=== PATIENT | female | born 1975 | race African-American/Black ===

== ENCOUNTER 2020-11-08 06:59 | Emergency (ER) | payer OTHER ==
[~2020-11-08] VITALS: Ht 177.8 cm; Wt 86.2 kg
[2020-11-08] MEDS ORDERED: SPIRONOLACTONE50 MG PO (07:39)
[2020-11-08] MEDS ORDERED: LASIX 40 MG TAB40 MG PO (07:39)
[2020-11-08] MEDS ORDERED: VITAMIN B-1100 M2 PO (07:40)
[2020-11-08] MEDS ORDERED: MAGOX 400400 MG PO (07:40)
[2020-11-08] MEDS ORDERED: FOLIC ACID1 MG PO (07:40)
[2020-11-08] MEDS ORDERED: ESSENTIAL DAIL1 EACH PO (07:41)
[2020-11-08 08:03] LABS: ABSOLUTE NEUTROPHILS 7.4 thou/uL (1.4-8.2); BASOPHILS 0.5 % (0.0-2.0); HEMOGLOBIN 10.7 gm/dL (12.0-15.0); MCH 32.6 pg (26.0-34.0); MCHC 33.4 g/dL (28.0-37.0); MCV 97.6 fL (80.0-100.0); MONOCYTES 5.8 % (1.0-8.0); PLATELET COUNT 119 thou/uL (150-400); POLYS 80.7 % (36.0-66.0); RBC 3.27 mil/uL (4.20-5.00); RDW 13.6 % (10.5-14.5); WBC 9.2 thou/uL (4.0-11.0)
[2020-11-08 08:12] LABS: ALBUMIN 2.5 g/dL (3.4-5.0); CREATININE 0.7 mg/dL (0.6-1.0); POTASSIUM 3.7 mmol/L (3.5-5.1); TOTAL PROTEIN 6.6 g/dL (6.4-8.2)
[2020-11-08 08:14] LABS: TOTAL BILIRUBIN 6.2 mg/dL (0.2-1.0)
[2020-11-08 08:19] LABS: CALCIUM 8.2 mg/dL (8.5-10.1)
[2020-11-08 09:16] LABS: URINE BILIRUBIN 1+ (Negative); URINE BLOOD 2+ (Negative); URINE CLARITY CLEAR; URINE COLOR YELLOW; URINE GLUCOSE-RANDOM* NEGATIVE (Negative); URINE KETONES NEGATIVE (Negative); URINE LEUKOCYTES-REFLEX NEGATIVE (Negative); URINE NITRITE-REFLEX NEGATIVE (Negative); URINE PROTEIN (DIPSTICK) NEGATIVE (Negative); URINE SPECIFIC GRAVITY <= 1.005 (1.005-1.035); URINE UROBILINOGEN 0.2 E.U./dl (0.2-1.0)
[2020-11-08 09:20] LABS: ICTOTEST (BILI CONFIRMATORY) Positive (Negative)
[2020-11-08 09:30] LABS: BACTERIA-REFLEX None Seen /HPF (None Seen); CASTS None Seen /LPF (None Seen); CRYSTALS None Seen /LPF (None Seen); SQUAMOUS 0-3 Few /LPF (0-3); URINE RBC 0-2 Rare /HPF (0-2); URINE WBC-REFLEX 0-5 Rare /HPF (0-5)
[2020-11-08] MEDS ORDERED: ULTRAM 50MG TAB50 MG PO (11:21)
[2020-11-08] MEDS ORDERED: ZOFRAN ODT4 MG PO (11:21)
[2020-11-08 11:37] VITALS: BP 126/75
== END 2020-11-08 11:44 | disposition home or self-care (01) ==
LOC: ER 06:59
PROVIDERS: Emergency Medicine
DX: K85.90 Acute pancreatitis without necrosis or infection, unspecified (principal); F10.10 Alcohol abuse, uncomplicated; F17.210 Nicotine dependence, cigarettes, uncomplicated; Z79.899 Other long term (current) drug therapy

== ENCOUNTER 2020-11-09 01:56 | Emergency (ER) | payer OTHER ==
[~2020-11-09] VITALS: Ht 177.8 cm; Wt 86.2 kg
[~2020-11-09 01:56] MED LIST: ESSENTIAL DAIL1 EACH PO; FOLIC ACID1 MG PO; LASIX 40 MG TAB40 MG PO; MAGOX 400400 MG PO; SPIRONOLACTONE50 MG PO; ULTRAM 50MG TAB50 MG PO; VITAMIN B-1100 M2 PO; ZOFRAN ODT4 MG PO
[2020-11-09 02:37] LABS: HEMATOCRIT 31.9 % (37.0-47.0); HEMOGLOBIN 10.7 gm/dL (12.0-15.0); MCH 32.7 pg (26.0-34.0); MCHC 33.5 g/dL (28.0-37.0); MCV 97.7 fL (80.0-100.0); RBC 3.27 mil/uL (4.20-5.00); RDW 13.5 % (10.5-14.5); WBC 9.7 thou/uL (4.0-11.0)
[2020-11-09 02:41] LABS: CALCIUM 8.2 mg/dL (8.5-10.1); CREATININE 0.7 mg/dL (0.6-1.0); POTASSIUM 3.4 mmol/L (3.5-5.1)
[2020-11-09 02:47] LABS: ALBUMIN 2.4 g/dL (3.4-5.0); DIRECT BILIRUBIN 3.6 mg/dL (<0.1-0.2); TOTAL PROTEIN 6.6 g/dL (6.4-8.2)
[2020-11-09 02:48] LABS: TOTAL BILIRUBIN 6.1 mg/dL (0.2-1.0)
[2020-11-09 03:55] VITALS: BP 125/81
== END 2020-11-09 04:00 | disposition home or self-care (01) ==
LOC: ER 01:56
PROVIDERS: Emergency Medicine
DX: K85.90 Acute pancreatitis without necrosis or infection, unspecified (principal); R19.7 Diarrhea, unspecified; F17.210 Nicotine dependence, cigarettes, uncomplicated; Z79.899 Other long term (current) drug therapy

== ENCOUNTER 2020-11-09 15:52 | Inpatient (IN) | payer OTHER ==
[~2020-11-09] VITALS: Ht 177.8 cm; Wt 82.1 kg
[2020-11-09 16:11] VITALS: BP 147/88
[2020-11-09 17:44] LABS: ABSOLUTE NEUTROPHILS 8.5 thou/uL (1.4-8.2); BASOPHILS 0.4 % (0.0-2.0); EOSINOPHILS 1.5 % (0.0-3.0); HEMATOCRIT 30.5 % (37.0-47.0); HEMOGLOBIN 10.1 gm/dL (12.0-15.0); LYMPHOCYTES 17.8 % (24.0-44.0); MCH 32.6 pg (26.0-34.0); MCHC 33.2 g/dL (28.0-37.0); MCV 98.3 fL (80.0-100.0); MONOCYTES 5.6 % (1.0-8.0); PLATELET COUNT 114 thou/uL (150-400); POLYS 74.7 % (36.0-66.0); RDW 13.4 % (10.5-14.5); WBC 11.3 thou/uL (4.0-11.0)
[2020-11-09 17:51] LABS: CALCIUM 8.5 mg/dL (8.5-10.1); CREATININE 0.7 mg/dL (0.6-1.0); POTASSIUM 3.5 mmol/L (3.5-5.1)
[2020-11-09 17:58] LABS: ALBUMIN 2.5 g/dL (3.4-5.0); TOTAL BILIRUBIN 6.8 mg/dL (0.2-1.0); TOTAL PROTEIN 6.2 g/dL (6.4-8.2)
[2020-11-09 18:32] LABS: URINE BILIRUBIN 3+ (Negative); URINE BLOOD 3+ (Negative); URINE CLARITY CLEAR; URINE COLOR YELLOW; URINE GLUCOSE-RANDOM* NEGATIVE (Negative); URINE KETONES NEGATIVE (Negative); URINE LEUKOCYTES-REFLEX NEGATIVE (Negative); URINE NITRITE-REFLEX NEGATIVE (Negative); URINE PROTEIN (DIPSTICK) 3+ (Negative); URINE SPECIFIC GRAVITY >= 1.030 (1.005-1.035); URINE UROBILINOGEN 0.2 E.U./dl (0.2-1.0)
[2020-11-09 18:33] LABS: ICTOTEST (BILI CONFIRMATORY) Positive (Negative)
[2020-11-09 18:42] LABS: SQUAMOUS 0-3 Few /LPF (0-3)
[2020-11-09 18:43] LABS: BACTERIA-REFLEX 1-9 Few /HPF (None Seen); CASTS None Seen /LPF (None Seen); CRYSTALS None Seen /LPF (None Seen); URINE RBC 3-10 Few /HPF (0-2); URINE WBC-REFLEX 0-5 Rare /HPF (0-5)
[2020-11-09 18:52] VITALS: BP 128/82
[2020-11-09 19:01] VITALS: BP 128/82
[2020-11-09 19:11] VITALS: BP 141/85
[2020-11-09 19:45] VITALS: BP 152/87
[2020-11-09 19:47] LABS: INR 1.5
[2020-11-10] VITALS (9 sets, daily range): BP systolic 143–156; BP diastolic 77–90
[2020-11-10 03:27] LABS: HEMATOCRIT 29.1 % (37.0-47.0); HEMOGLOBIN 9.7 gm/dL (12.0-15.0); MCH 32.8 pg (26.0-34.0); MCHC 33.5 g/dL (28.0-37.0); RBC 2.97 mil/uL (4.20-5.00); RDW 13.7 % (10.5-14.5); WBC 7.8 thou/uL (4.0-11.0)
[2020-11-10 03:34] LABS: INR 1.4; PROTIME 14.6 Seconds (9.3-11.4)
[2020-11-10 03:44] LABS: ALBUMIN 2.2 g/dL (3.4-5.0); CALCIUM 8.2 mg/dL (8.5-10.1); CREATININE 0.5 mg/dL (0.6-1.0); MAGNESIUM 1.4 mg/dL (1.8-2.4); POTASSIUM 3.3 mmol/L (3.5-5.1); TOTAL PROTEIN 5.9 g/dL (6.4-8.2)
[2020-11-10 03:46] LABS: TOTAL BILIRUBIN 6.8 mg/dL (0.2-1.0)
--- NOTE | 2020-11-10 07:45 | NUR ---
NEW ADMIT TO FLOOR FROM ED; AOX4/ANXIOUS; CIWA; 1AVB/SR/ST ON THE MONITOR; SBA TO TOILET; C/O OF PAIN THROUGHOUT THE NOC MANAGED WITH MEDICATION; EDUCATED ON FALL PRECAUTIONS; NEEDS WITHIN REACH; FREQUENT MONITORING OF PT; WILL CONTINUE TO MONITOR.
--- NOTE | 2020-11-10 17:59 | NUR ---
PT CARE ASSUMED AT 0700. ASSESSMENTS CHARTED. MEDICATIONS CHARTED. RH IV. SINUS RHYTHM. UP TO TOILET; ORANGE URINE. CIWA; 9. PT CALLS FOR PAIN MEDS ALT ON REGULAR BASIS WHEN AWAKE. WALKED ONCE AROUND UNIT; ACCOMPANIED BY RN.
[2020-11-11] VITALS (8 sets, daily range): BP systolic 144–147; BP diastolic 73–88
--- NOTE | 2020-11-11 03:29 | NUR ---
PATIENTS CARE WAS ASSUMED AT SHIFT CHANGE. PATIENT WAS ASSESSED AND MEDS WERE PASSED. PATIENT CONTINUES TO ASK FOR PAIN MEDS EVERY FOUR HOURS WITH A CONTINUES REQUEST FOR FOOD. PATIENT REQUEST PAIN MEDS WHEN SHE CAN NOT KEEP HER EYES OPEN. WILL TREAT PAIN CAUTIOUSLY.WILL CONTINUE TOMONITOR. THE BED IS IN A LOW AND LOCKED POSTITION.
[2020-11-11 04:22] LABS: INR 1.4; PROTIME 14.5 Seconds (9.3-11.4)
[2020-11-11 04:25] LABS: HEMATOCRIT 28.3 % (37.0-47.0); HEMOGLOBIN 9.5 gm/dL (12.0-15.0); MCH 32.9 pg (26.0-34.0); MCHC 33.6 g/dL (28.0-37.0); RBC 2.89 mil/uL (4.20-5.00); RDW 13.9 % (10.5-14.5); WBC 6.7 thou/uL (4.0-11.0)
[2020-11-11 04:26] LABS: ALBUMIN 2.1 g/dL (3.4-5.0); CALCIUM 8.6 mg/dL (8.5-10.1); CREATININE 0.7 mg/dL (0.6-1.0); MAGNESIUM 1.7 mg/dL (1.8-2.4); POTASSIUM 4.1 mmol/L (3.5-5.1); TOTAL PROTEIN 5.7 g/dL (6.4-8.2)
--- NOTE | 2020-11-11 20:29 | NUR ---
PT CARE ASSUMED AT 0700. ASSESSMENTS CHARTED. MEDICATIONS CHARTED. RH IV. SINUS TACHYCARDIA. TOILET. PT WALKS THE HALLS FREQUENTLY; STEADY. PT WATCHES THE CLOCK FOR HER PAIN MEDS AND ATIVAN. PT ASKS FOR FOOD FREQUENTLY.
--- NOTE | 2020-11-11 20:50 | NUR ---
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 ORDERS FOR PAIN PILLS, AND IV BENADRYL. 2200 SLEEPING WITHOUT COMPLAINTS
[2020-11-12 03:07] VITALS: BP 145/75
[2020-11-12 03:42] LABS: INR 1.5; PROTIME 15.3 Seconds (9.3-11.4)
[2020-11-12 03:53] LABS: HEMATOCRIT 27.1 % (37.0-47.0); HEMOGLOBIN 9.2 gm/dL (12.0-15.0); MCH 33.5 pg (26.0-34.0); MCHC 34.1 g/dL (28.0-37.0); MCV 98.2 fL (80.0-100.0); RBC 2.76 mil/uL (4.20-5.00); RDW 13.7 % (10.5-14.5)
[2020-11-12 03:54] LABS: ALBUMIN 2.2 g/dL (3.4-5.0); CALCIUM 8.8 mg/dL (8.5-10.1); CREATININE 0.6 mg/dL (0.6-1.0); MAGNESIUM 1.7 mg/dL (1.8-2.4); POTASSIUM 3.9 mmol/L (3.5-5.1); TOTAL PROTEIN 5.6 g/dL (6.4-8.2)
[2020-11-12 03:57] LABS: TOTAL BILIRUBIN 6.9 mg/dL (0.2-1.0)
--- NOTE | 2020-11-12 08:03 | NUR ---
SLEPT PART OF SHIFT. SAID COUCH FEELS BETTER THAN BED. WORKING ON GOALS AND PLAN OF CARE FOR NOC. UP AD JC IN ROOM AND DRUMMOND WITH STEADY GAIT. CONTINUE TO ASSES. ATIVAN NEEDED AT TIMES FOR AGITATION AND ANXIETY.
[2020-11-12 08:32] VITALS: BP 146/81
--- NOTE | 2020-11-12 10:18 | NUR ---
Received awake on bed, drowsy but rousable- Dr Isabel informed that pt complains of pain but sleeping most of the time. Due medications given as prescribed, able to swallow meds w/o difficulty. On room air. Vital signs stable. On telemetry; no complains and signs of chest pain, crushing sensation and heaviness. On pureed diet- pt requesting for diet to be advanced- Dr Isabel and DENIS Davis informed; a/w orders. On CIWA monitoring- scoring low- physician updated; pt still feeling anxious. Still a/w stool sample; pt informed and reminded. Continent of bowel and bladder, able to go to the toilet independently. With IV at R thumb, pulled out this AM- verified with Dr Isabel if to still re-insert since pt requesting on PO meds instead of IV meds. Up ad nicol. Complained of pain, due PRN pain meds given as prescribed. No nausea, no vomiting and no abdominal pain noted. Assisted in ADLs. Pt seen and examined by Dr Isabel this AM, possible discharge tomorrow. With orders to obtain recorded from [facility]- consent signed, US faxed request this AM. To continue monitoring patient. Pt switched from CCT to MS by hospitalist this AM; telemetry stopped.
[2020-11-12 16:30] VITALS: BP 137/82
[2020-11-12 20:45] VITALS: BP 135/75
--- NOTE | 2020-11-12 22:40 | NUR ---
2200 REPORT CALLED TO JANENE RN ON 4S FOR TRANSFER TO 442 PER ORDERS. PATIENT UP AD JC IN ROOM WITH STEADY GAIT. ATIVAN, BENADRYL AND HYDROCODONE GIVEN PER ORDERS NEEDED. PATIENT STATES SHE WILL LET FAMILY KNOW OF ROOM CHANGE. PROGRESSING SLOWLY TOWARDS DISCHARGE GOALS. TRANSFER PER BED.
[2020-11-13 04:24] VITALS: BP 152/86
--- NOTE | 2020-11-13 04:51 | NUR ---
ASSUMED CARE OF PT FROM 2N AT 2204HRS. PT IS AOX4 AND LETS NEEDS BE KNOWN. PT IS UP AD JC. PT REPORTS PAIN AND ANXIETY, PRNS GIVEN. PT WALKED AROUND THE UNIT SEVERAL TIMES. PT DENIES NAUSEA OR SOA. PT DID NOT SLEEP MUCH THIS SHIFT. VSS AND NO S/S OF ACUTE DISTRESS. WILL CONTIINUE TO MONIOTOR.
[2020-11-13 06:12] LABS: HEMATOCRIT 29.4 % (37.0-47.0); HEMOGLOBIN 9.8 gm/dL (12.0-15.0); MCHC 33.2 g/dL (28.0-37.0); MCV 99.4 fL (80.0-100.0); RBC 2.96 mil/uL (4.20-5.00); RDW 14.3 % (10.5-14.5); WBC 6.3 thou/uL (4.0-11.0)
[2020-11-13 06:23] LABS: ALBUMIN 2.3 g/dL (3.4-5.0); CALCIUM 8.9 mg/dL (8.5-10.1); CREATININE 0.7 mg/dL (0.6-1.0); MAGNESIUM 1.7 mg/dL (1.8-2.4); POTASSIUM 3.8 mmol/L (3.5-5.1)
--- NOTE | 2020-11-13 07:46 | NUR ---
AT 0720HRS, PT WAS SEEN PACKNG HER THINGS. WHEN ASKED, PT SAID SHE WANTS TO GO HOME AND FOLLOW UP WITH PCP. PATIENT WAS INFORMED THAT LEANVING WOULD BE AGAINST MEDICAL ADVISE. SUPERVISOR PAYROLL AND HOSPITALIST WAS NOTIFIED. IV ACCESS WAS REMOVED AND PT SIGNED AMA FORM. PT LEFT THE UNIT AT 0735HRS ON FOOT.
--- NOTE | 2020-11-13 11:26 | NUR ---
CM SPOKE WITH BEDSIDE RN WHO REPORTS PT LEFT AMA.
== END 2020-11-13 08:00 | disposition left against medical advice (07) | DRG 432 ==
LOC: ER 15:52 → EROBS 18:45 → 2N 18:45 → 4S 11-12 22:15
PROVIDERS: Physician Assistant; ADMIT Internal Medicine; ATTEND Internal Medicine
DX: K70.11 Alcoholic hepatitis with ascites (principal); E43 Unspecified severe protein-calorie malnutrition; K85.20 Alcohol induced acute pancreatitis without necrosis or infection; K86.0 Alcohol-induced chronic pancreatitis; F10.129 Alcohol abuse with intoxication, unspecified; F17.210 Nicotine dependence, cigarettes, uncomplicated; E80.6 Other disorders of bilirubin metabolism; K72.90 Hepatic failure, unspecified without coma; Z53.29 Procedure and treatment not carried out because of patient's decision for other reasons; Z23 Encounter for immunization; Z79.899 Other long term (current) drug therapy; Z68.26 Body mass index [BMI] 26.0-26.9, adult
CPT/HCPCS: 10081; 10100; 10195

== ENCOUNTER 2020-11-13 18:00 | Emergency (ER) | payer OTHER ==
[~2020-11-13] VITALS: Ht 177.8 cm; Wt 86.2 kg
[2020-11-13 21:36] LABS: ABSOLUTE NEUTROPHILS 6.1 thou/uL (1.4-8.2); BASOPHILS 0.8 % (0.0-2.0); EOSINOPHILS 1.5 % (0.0-3.0); HEMATOCRIT 30.7 % (37.0-47.0); HEMOGLOBIN 10.3 gm/dL (12.0-15.0); LYMPHOCYTES 15.2 % (24.0-44.0); MCH 33.1 pg (26.0-34.0); MCHC 33.4 g/dL (28.0-37.0); MCV 98.9 fL (80.0-100.0); MONOCYTES 6.6 % (1.0-8.0); PLATELET COUNT 89 thou/uL (150-400); POLYS 75.9 % (36.0-66.0); RDW 14.4 % (10.5-14.5)
[2020-11-13 21:54] LABS: CALCIUM 8.5 mg/dL (8.5-10.1); CREATININE 0.8 mg/dL (0.6-1.0); POTASSIUM 3.2 mmol/L (3.5-5.1)
[2020-11-13 21:57] LABS: ALBUMIN 2.5 g/dL (3.4-5.0); TOTAL BILIRUBIN 6.3 mg/dL (0.2-1.0); TOTAL PROTEIN 6.6 g/dL (6.4-8.2)
[2020-11-14 02:49] VITALS: BP 145/79
== END 2020-11-14 02:55 | disposition home or self-care (01) ==
LOC: ER 18:00
PROVIDERS: Emergency Medicine
DX: R10.84 Generalized abdominal pain (principal); F17.210 Nicotine dependence, cigarettes, uncomplicated; Z90.49 Acquired absence of other specified parts of digestive tract; Z79.899 Other long term (current) drug therapy

== ENCOUNTER 2021-03-12 02:04 | Emergency (ER) | payer OTHER ==
[~2021-03-12] VITALS: Ht 182.9 cm; Wt 90.7 kg
[2021-03-12] MEDS ORDERED: LANTUS SOL100 UNIT/1 (02:18)
[2021-03-12] MEDS ORDERED: HUMULIN 70100 UNIT/2 SUBQ (02:19)
[2021-03-12] MEDS ORDERED: PROTONIX40 M2 PO (02:19)
[2021-03-12] MEDS ORDERED: CONSTULOSE10 GM/152 PO (02:20)
[2021-03-12] MEDS ORDERED: FUROSEMIDE 40 M40 M1 PO (02:20)
[2021-03-12] MEDS ORDERED: PRENATAL VITAM1 EA10 PO (02:22)
[2021-03-12 02:38] LABS: URINE BILIRUBIN NEGATIVE (Negative); URINE BLOOD 1+ (Negative); URINE CLARITY CLEAR; URINE COLOR YELLOW; URINE GLUCOSE-RANDOM* 3+ (Negative); URINE KETONES NEGATIVE (Negative); URINE LEUKOCYTES-REFLEX NEGATIVE (Negative); URINE NITRITE-REFLEX NEGATIVE (Negative); URINE PROTEIN (DIPSTICK) TRACE (Negative); URINE SPECIFIC GRAVITY 1.015 (1.005-1.035); URINE UROBILINOGEN 0.2 E.U./dl (0.2-1.0)
[2021-03-12 02:43] LABS: ABSOLUTE NEUTROPHILS 3.2 thou/uL (1.4-8.2); BASOPHILS 1.3 % (0.0-2.0); EOSINOPHILS 2.8 % (0.0-3.0); HEMATOCRIT 33.4 % (37.0-47.0); HEMOGLOBIN 10.8 gm/dL (12.0-15.0); LYMPHOCYTES 24.2 % (24.0-44.0); MCH 32.3 pg (26.0-34.0); MCHC 32.3 g/dL (28.0-37.0); MCV 100.2 fL (80.0-100.0); MONOCYTES 12.5 % (1.0-8.0); PLATELET COUNT 111 thou/uL (150-400); POLYS 59.2 % (36.0-66.0); RBC 3.34 mil/uL (4.20-5.00); RDW 14.3 % (10.5-14.5); WBC 5.3 thou/uL (4.0-11.0)
[2021-03-12 02:47] LABS: POTASSIUM 4.1 mmol/L (3.5-5.1)
[2021-03-12 02:50] LABS: CALCIUM 7.9 mg/dL (8.5-10.1); CREATININE 0.9 mg/dL (0.6-1.0)
[2021-03-12 02:53] LABS: ALBUMIN 2.3 g/dL (3.4-5.0); TOTAL BILIRUBIN 5.9 mg/dL (0.2-1.0); TOTAL PROTEIN 6.4 g/dL (6.4-8.2)
[2021-03-12 02:54] LABS: BACTERIA-REFLEX None Seen /HPF (None Seen); CASTS None Seen /LPF (None Seen); CRYSTALS None Seen /LPF (None Seen); SQUAMOUS None Seen /LPF (0-3); URINE RBC 1-2 Rare /HPF (NONE SEEN); URINE WBC-REFLEX None Seen /HPF (0-5)
[2021-03-12 03:20] VITALS: BP 143/85
--- NOTE | 2021-03-12 05:52 | EKG ---
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 : 1975 Requested By: Frances Johnson Order Number: [id number] MD: Eliud Morales Measurements Intervals [place] Rate: 97 P: 43 HI: 171 QRS: -7 QRSD: 93 T: 39 QT: 383 QTc: 487 Interpretive Statements Sinus rhythm Probable left atrial enlargement Left ventricular hypertrophy Inferior infarct, old Anterior Q waves, possibly due to LVH No previous ECG available for comparison Electronically Signed On 03-12-2021 5:52:25 CDT by Eliud Morales [email or web address] <ELECTRONICALLY SIGNED> By: Eliud Morales MD, [facility] 03/12/21 0552 0252 0252 Eliud Morales MD, FACC /EPI
== END 2021-03-12 03:40 | disposition home or self-care (01) ==
LOC: ER 02:04
PROVIDERS: Emergency Medicine
DX: E11.65 Type 2 diabetes mellitus with hyperglycemia (principal); G89.4 Chronic pain syndrome; F17.210 Nicotine dependence, cigarettes, uncomplicated; Z91.14 Patient's other noncompliance with medication regimen; Z90.49 Acquired absence of other specified parts of digestive tract; Z79.4 Long term (current) use of insulin; Z79.899 Other long term (current) drug therapy

== ENCOUNTER 2021-04-04 23:49 | Emergency (ER) | payer OTHER ==
[~2021-04-04] VITALS: Ht 177.8 cm; Wt 88.0 kg
[~2021-04-04 23:49] MED LIST changes: +CONSTULOSE10 GM/152 PO; +FUROSEMIDE 40 M40 M1 PO; +HUMULIN 70100 UNIT/2 SUBQ; +LANTUS SOL100 UNIT/1; +PRENATAL VITAM1 EA10 PO; +PROTONIX40 M2 PO
[2021-04-05 00:14] LABS: ABSOLUTE NEUTROPHILS 5.6 thou/uL (1.4-8.2); BASOPHILS 0.7 % (0.0-2.0); HEMATOCRIT 34.9 % (37.0-47.0); HEMOGLOBIN 11.7 gm/dL (12.0-15.0); LYMPHOCYTES 15.7 % (24.0-44.0); MCH 33.7 pg (26.0-34.0); MCHC 33.6 g/dL (28.0-37.0); MCV 100.2 fL (80.0-100.0); MONOCYTES 13.7 % (1.0-8.0); PLATELET COUNT 79 thou/uL (150-400); POLYS 67.9 % (36.0-66.0); RBC 3.48 mil/uL (4.20-5.00); RDW 14.3 % (10.5-14.5); WBC 8.3 thou/uL (4.0-11.0)
[2021-04-05 00:21] LABS: ALBUMIN 1.7 g/dL (3.4-5.0); CALCIUM 7.7 mg/dL (8.5-10.1); CREATININE 0.9 mg/dL (0.6-1.0); MAGNESIUM 1.5 mg/dL (1.8-2.4); POTASSIUM 3.4 mmol/L (3.5-5.1); TOTAL PROTEIN 6.1 g/dL (6.4-8.2)
[2021-04-05 01:35] LABS: URINE BILIRUBIN 2+ (Negative); URINE BLOOD 3+ (Negative); URINE CLARITY CLEAR; URINE COLOR YELLOW; URINE GLUCOSE-RANDOM* 2+ (Negative); URINE KETONES TRACE (Negative); URINE LEUKOCYTES-REFLEX NEGATIVE (Negative); URINE PROTEIN (DIPSTICK) 3+ (Negative)
[2021-04-05 01:57] LABS: ICTOTEST (BILI CONFIRMATORY) Positive (Negative); URINE NITRITE-REFLEX POSITIVE (Negative)
[2021-04-05 02:09] LABS: AMP/METHAMP Negative (Negative); BARBITURATES Negative (Negative); BENZODIAZEPINES Negative (Negative); COCAINE Negative (Negative); METHADONE Negative (Negative); OPIATES Negative (Negative); PCP Negative (Negative)
[2021-04-05 02:24] LABS: CASTS None Seen /LPF (None Seen); MUCUS None Seen strn/LPF (None Seen); SQUAMOUS 0-3 Few /LPF (0-3); URINE WBC-REFLEX 6-15 Few /HPF (0-5)
[2021-04-05 02:25] LABS: BACTERIA-REFLEX >30 Many /HPF (None Seen); CRYSTALS None Seen /LPF (None Seen); TRANSITIONAL EPITHEL CELL 0-3 Few /LPF (None Seen); URINE RBC 3-10 Few /HPF (NONE SEEN)
[2021-04-05 05:15] VITALS: BP 132/77
== END 2021-04-05 05:17 | disposition home or self-care (01) ==
LOC: ER 23:49
PROVIDERS: Emergency Medicine
DX: F10.10 Alcohol abuse, uncomplicated (principal); R10.817 Generalized abdominal tenderness; M54.5 Low back pain; F17.210 Nicotine dependence, cigarettes, uncomplicated; Z90.49 Acquired absence of other specified parts of digestive tract; Z98.890 Other specified postprocedural states; Y90.8 Blood alcohol level of 240 mg/100 ml or more; Z79.899 Other long term (current) drug therapy

== ENCOUNTER 2021-04-11 22:46 | Emergency (ER) | payer OTHER ==
[~2021-04-11] VITALS: Ht 170.2 cm; Wt 90.7 kg
[~2021-04-11 22:46] MED LIST changes: +BACTRIM DS TAB1 EACH PO
[2021-04-12 00:17] LABS: BASOPHILS 0.5 % (0.0-2.0); EOSINOPHILS 1.2 % (0.0-3.0); HEMOGLOBIN 10.7 gm/dL (12.0-15.0); LYMPHOCYTES 10.7 % (24.0-44.0); MCHC 33.3 g/dL (28.0-37.0); PLATELET COUNT 67 thou/uL (150-400); POLYS 76.6 % (36.0-66.0); RBC 3.14 mil/uL (4.20-5.00); RDW 14.6 % (10.5-14.5); WBC 7.9 thou/uL (4.0-11.0)
[2021-04-12 00:19] LABS: CALCIUM 7.1 mg/dL (8.5-10.1); CREATININE 0.6 mg/dL (0.6-1.0); POTASSIUM 4.2 mmol/L (3.5-5.1)
[2021-04-12] MEDS ORDERED: CHOLESTYRAMINE P4 GM PO (00:20)
[2021-04-12 00:25] LABS: ALBUMIN 1.4 g/dL (3.4-5.0); TOTAL BILIRUBIN 8.1 mg/dL (0.2-1.0); TOTAL PROTEIN 5.4 g/dL (6.4-8.2)
[2021-04-12 00:39] VITALS: BP 158/104
--- NOTE | 2021-04-12 06:52 | EKG ---
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 : 1975 Requested By: Frances Johnson Order Number: [id number] MD: Eliud Morales Measurements Intervals [place] Rate: 100 P: 35 [place]: 168 QRS: 12 QRSD: 104 T: 40 QT: 383 QTc: 494 Interpretive Statements Sinus tachycardia Probable left atrial enlargement Compared to ECG 03/12/2021 02:52:56 Sinus rhythm no longer present Left ventricular hypertrophy no longer present Q waves no longer present Electronically Signed On 04-12-2021 6:52:37 CDT by Eliud Morales [email or web address] <ELECTRONICALLY SIGNED> By: Eliud Morales MD, [facility] 04/12/21 0652 D: 05/2348 48 Eliud Morales MD, FACC /EPI
== END 2021-04-12 00:45 | disposition home or self-care (01) ==
LOC: ER 22:46
PROVIDERS: Emergency Medicine
DX: F10.129 Alcohol abuse with intoxication, unspecified (principal); R10.11 Right upper quadrant pain; F17.210 Nicotine dependence, cigarettes, uncomplicated; Z79.899 Other long term (current) drug therapy; Z90.49 Acquired absence of other specified parts of digestive tract; Z91.14 Patient's other noncompliance with medication regimen; Y90.9 Presence of alcohol in blood, level not specified

== ENCOUNTER 2021-04-16 07:07 | Inpatient (IN) | payer OTHER ==
[~2021-04-16] VITALS: Ht 177.8 cm; Wt 105.2 kg
[~2021-04-16 07:07] MED LIST changes: +CHOLESTYRAMINE P4 GM PO
[2021-04-16 07:08] VITALS: BP 145/86
[2021-04-16 07:45] LABS: ABSOLUTE NEUTROPHILS 4.8 thou/uL (1.4-8.2); BASOPHILS 0.7 % (0.0-2.0); HEMATOCRIT 32.6 % (37.0-47.0); HEMOGLOBIN 11.1 gm/dL (12.0-15.0); LYMPHOCYTES 17.8 % (24.0-44.0); MCH 34.8 pg (26.0-34.0); MCHC 34.1 g/dL (28.0-37.0); MCV 102.2 fL (80.0-100.0); MONOCYTES 10.3 % (1.0-8.0); POLYS 70.2 % (36.0-66.0); RBC 3.19 mil/uL (4.20-5.00); RDW 16.5 % (10.5-14.5); WBC 6.8 thou/uL (4.0-11.0)
[2021-04-16 07:57] LABS: CALCIUM 7.6 mg/dL (8.5-10.1); CREATININE 0.8 mg/dL (0.6-1.0); POTASSIUM 3.8 mmol/L (3.5-5.1)
[2021-04-16 08:04] LABS: ALBUMIN 1.6 g/dL (3.4-5.0); MAGNESIUM 1.6 mg/dL (1.8-2.4); TOTAL PROTEIN 6.1 g/dL (6.4-8.2)
[2021-04-16 08:05] LABS: TOTAL BILIRUBIN 10.5 mg/dL (0.2-1.0)
[2021-04-16 08:37] LABS: PLATELET COUNT 79 thou/uL (150-400)
[2021-04-16 10:08] LABS: CLARITY CLOUDY; COLOR RED; SOURCE ABDOMINAL FLUID; TOTAL VOLUME 60 mL
[2021-04-16 10:34] LABS: APTT 35.5 Seconds (24.5-32.8); INR 1.49; PROTIME 15.9 Seconds (10.5-12.1)
[2021-04-16 10:36] LABS: BF NUCLEATED CELLS 227 /mm3; BF RBC 85528 /mm3
[2021-04-16 10:48] VITALS: BP 148/88
[2021-04-16 11:37] LABS: BF MACROPHAGE 24 %; BF NEUTROPHILS 57 %
[2021-04-16] MEDS ORDERED: K-DUR 20 MEQ T20 MEQ PO (11:53)
[2021-04-16] MEDS ORDERED: KEPPRA 500 MG500 M1 PO (11:54)
[2021-04-16 12:03] LABS: HEMATOCRIT 29.7 % (37.0-47.0); HEMOGLOBIN 10.2 gm/dL (12.0-15.0)
[2021-04-16 12:42] LABS: FOLIC ACID 13.1 ng/mL (8.6-58.9)
--- NOTE | 2021-04-16 14:52 | NUR ---
VERIFIED WITH LIZETTE ZURITA IN ED, MAG SULFATE WAS NOT ADMINISTERED IN ED. THIS RN REQUESTED FROM PHARMACY.
[2021-04-16 15:03] VITALS: BP 146/97
[2021-04-16 16:22] LABS: SOURCE ABDOMINAL
--- NOTE | 2021-04-16 17:52 | NUR ---
PT TO UNIT FROM ED JUST BEFORE LUNCH. PT HAS LIVER INJURY FROM PARACENTESIS. PT IS A&OX4. SLIGHTLY UNSTEADY ON FEET, STANDBY ASSIST RECOMMENDED. SLIDING SCALE INSULIN. PT CIWA SCALE, SCORES BETWEEN 2-4. ANXIETY AND TREMORS ARE MAIN CONCERN. PT DRINKS AT LEAST ONE PINT OF ALCOHOL PER DAY. SKIN AND SCLERA JAUNDICED. LARGE BRUSE ON R SIDE BACK ABOVE PARACENTESIS SITE NOTED, PICTURE TAKEN. L GREAT TOE SCABBED AREA, PICTURE TAKEN. PT CURRENTLY ON CLEARS UNTIL ABLE TO UPGRADE PER PHYSICIAN.
[2021-04-16 19:23] VITALS: BP 147/98
[2021-04-16 21:42] LABS: URINE BILIRUBIN 3+ (Negative); URINE BLOOD 3+ (Negative); URINE CLARITY CLOUDY; URINE COLOR ORANGE; URINE GLUCOSE-RANDOM* 1+ (Negative); URINE KETONES TRACE (Negative); URINE LEUKOCYTES-REFLEX NEGATIVE (Negative); URINE PROTEIN (DIPSTICK) 3+ (Negative); URINE UROBILINOGEN >= 8.0 E.U./dl (0.2-1.0)
[2021-04-16 21:44] LABS: URINE NITRITE-REFLEX POSITIVE (Negative)
[2021-04-16 22:00] LABS: SQUAMOUS 4-10 Moderate /LPF (0-3)
[2021-04-16 22:01] LABS: MUCUS >6 Heavy strn/LPF (None Seen)
[2021-04-16 22:02] LABS: HYALINE CASTS 4-10 Moderate /LPF (None Seen)
[2021-04-16 22:04] LABS: CRYSTALS None Seen /LPF (None Seen)
[2021-04-17] VITALS (63 sets, daily range): BP systolic 82–141; BP diastolic 50–90
[2021-04-17 06:17] LABS: ABSOLUTE NEUTROPHILS 8.8 thou/uL (1.4-8.2); BASOPHILS 0.7 % (0.0-2.0); EOSINOPHILS 0.5 % (0.0-3.0); HEMATOCRIT 21.6 % (37.0-47.0); LYMPHOCYTES 7.5 % (24.0-44.0); MCH 36.6 pg (26.0-34.0); MCHC 34.4 g/dL (28.0-37.0); MCV 106.4 fL (80.0-100.0); PLATELET COUNT 85 thou/uL (150-400); POLYS 80.3 % (36.0-66.0); RBC 2.03 mil/uL (4.20-5.00); RDW 16.8 % (10.5-14.5); WBC 10.9 thou/uL (4.0-11.0)
[2021-04-17 06:20] LABS: HEMOGLOBIN 7.4 gm/dL (12.0-15.0)
[2021-04-17 06:39] LABS: CREATININE 1.2 mg/dL (0.6-1.0); MAGNESIUM 1.9 mg/dL (1.8-2.4); POTASSIUM 4.5 mmol/L (3.5-5.1)
--- NOTE | 2021-04-17 08:52 | NUR ---
ASSUMED PT CARE AT SHIFT CHANGE, PT VERY LETHARGIC, AROUSABLE. WEAKNESS INCREASED SINCE YESTERDAY DAY SHIFT. ABDOMEN DISTENDED, HARD. PT STATES INCREASED DIFFICULTY BREATHING, UPPER LOBES CLEAR, RLL DIMINISHED. 2L O2 VIA NC PLACED FOR PT COMFORT. SATS 100%. DR AQUINO NOTIFIED, STAT LABS AND CT ORDERED. RESULTS FROM LABS/CT, DR PARIKH REQUESTED TRANSFER TO ICU. NO URINE OUTPUT, TAM PLACED ON BEAMING INSPECTOR.
[2021-04-17 09:04] LABS: EOSINOPHILS 0.2 % (0.0-3.0); HEMATOCRIT 20.3 % (37.0-47.0); RDW 18.6 % (10.5-14.5)
[2021-04-17 09:06] LABS: ABSOLUTE NEUTROPHILS 10.4 thou/uL (1.4-8.2); BASOPHILS 0.6 % (0.0-2.0); HEMOGLOBIN 6.6 gm/dL (12.0-15.0); LYMPHOCYTES 3.3 % (24.0-44.0); MCH 35.5 pg (26.0-34.0); MCHC 32.5 g/dL (28.0-37.0); MCV 109.2 fL (80.0-100.0); MONOCYTES 11.9 % (1.0-8.0); RBC 1.86 mil/uL (4.20-5.00); WBC 12.4 thou/uL (4.0-11.0)
[2021-04-17 09:23] LABS: PLATELET COUNT 90 thou/uL (150-400)
--- NOTE | 2021-04-17 10:28 | NUR ---
PT TAKEN BY THIS RN TO IR. REPORT GIVEN TO BALANCE WHEEL SCREW HOLE DRILLER, APPROXIMATELY [phone]
[2021-04-17 10:33] LABS: ALBUMIN 1.2 g/dL (3.4-5.0); TOTAL BILIRUBIN 10.3 mg/dL (0.2-1.0); TOTAL PROTEIN 4.2 g/dL (6.4-8.2)
[2021-04-17 10:56] LABS: ANISOCYTOSIS 1+; BURR CELLS FEW; HYPOCHROMASIA SLIGHT; MACROCYTES 1+; POIKILOCYTOSIS SLIGHT
[2021-04-17 10:57] LABS: POLYCHROMASIA SLIGHT
--- NOTE | 2021-04-17 11:21 | NUR ---
Case opened to follow for dc planning. Pt is currently in IR for embolization of her liver due to puncture during paracenthesis. The pt is being treated for alcohol withdrawal/enstage liver disease. She is a frequent visitor to the ER and drinks daily. She is disabled and has medicare and [place] medicaid. She lives independently with her sign other Travis. Transfer to the ICU post procedure. Cm to follow and offer ethol treatment resources if desired. Resources and local programs noted on the pt's dc instructions.
[2021-04-17 13:19] LABS: BE(vivo) -3.2 mmol/L (-2 to +3); HCO3 21.3 mmol/L (22.0-26.0); PCO2 34.9 mmHg (35.0-45.0); PO2 74.4 mmHg (80.0-100.0); pH 7.403 (7.360-7.450); sO2 95.1 % (92.0-98.0)
[2021-04-17 14:41] LABS: MCV 109.3 fL (80.0-100.0)
[2021-04-17 14:43] LABS: MCHC 32.9 g/dL (28.0-37.0); RBC 1.43 mil/uL (4.20-5.00); RDW 18.8 % (10.5-14.5); WBC 13.1 thou/uL (4.0-11.0)
[2021-04-17 14:58] LABS: HEMOGLOBIN 5.2 gm/dL (12.0-15.0)
[2021-04-17 14:59] LABS: HEMATOCRIT 15.7 % (37.0-47.0)
--- NOTE | 2021-04-17 19:23 | NUR ---
PT ARRIVED TO ICU 1230, ON PRESSORS, AND 2LNC. URINE OUTPUT 25 THIS SHIFT, DR.V CALHOUN. RECIEVED 1FFP AND COMPLEING 1PRBC AT SHIFT CHANGE. CBC FOLLOWING 2ND UNIT. PT FREQUENTLY ASKING FOR PAIN MEDICATION THROUGOUT SHIFT. PRN GIVEN
[2021-04-18] VITALS (55 sets, daily range): BP systolic 91–136; BP diastolic 57–76
[2021-04-18 00:21] LABS: MCH 34.1 pg (26.0-34.0); MCHC 33.4 g/dL (28.0-37.0); RBC 1.8 mil/uL (4.20-5.00); RDW 21.4 % (10.5-14.5)
[2021-04-18 00:22] LABS: MCV 102.2 fL (80.0-100.0)
[2021-04-18 00:23] LABS: HEMATOCRIT 18.4 % (37.0-47.0); HEMOGLOBIN 6.1 gm/dL (12.0-15.0)
--- NOTE | 2021-04-18 05:36 | NUR ---
PT IS INTERMITTENTLY ORIENTED X3, NEEDS REMINDING ON TIME/PLACE OCCASIONALLY. IS FORGETFUL, ASKING THE SAME QUESTION OVER AND OVER AND FIXATING ON CERTAIN ASPECTS OF CARE. FREQUENTLY ASKING TO GET UP AND WALK AROUND OR GO HAVE A CIGARETTE. EDUCATED ON CONCERNS REGARDING BLEEDING, LOW BP AND INSTABILITY. PT DOES STATE UNDERSTANDING IN THE MOMENT BUT WILL ASK AGAIN SHORTLY AFTER. OFF LEVO AT MN, RA, TURNS SELF IN BED, NO C/O PAIN SINCE APPROXIMATELY 2300. ST, BP HAS BEEN STABLE OFF LEVO. 3RD UNIT OF RBC TRANSFUSED WITHOUT INCIDENT. PT DENIES SOA, IS MILDLY ITCHY BUT LOCALIZED IN ABD AND FEET.
[2021-04-18 06:19] LABS: WBC 14.9 thou/uL (4.0-11.0)
[2021-04-18 06:21] LABS: MCH 34.3 pg (26.0-34.0); MCHC 34.1 g/dL (28.0-37.0); MCV 100.6 fL (80.0-100.0); RBC 1.87 mil/uL (4.20-5.00); RDW 16.9 % (10.5-14.5)
[2021-04-18 06:23] LABS: HEMATOCRIT 18.8 % (37.0-47.0); HEMOGLOBIN 6.4 gm/dL (12.0-15.0)
[2021-04-18 06:38] LABS: ALBUMIN 1.3 g/dL (3.4-5.0); CALCIUM 6.7 mg/dL (8.5-10.1); MAGNESIUM 1.8 mg/dL (1.8-2.4); POTASSIUM 4.6 mmol/L (3.5-5.1); TOTAL BILIRUBIN 11.2 mg/dL (0.2-1.0); TOTAL PROTEIN 3.6 g/dL (6.4-8.2)
[2021-04-18 06:39] LABS: CREATININE 2.7 mg/dL (0.6-1.0)
--- NOTE | 2021-04-18 11:00 | NUR ---
PT UP OUT OF BED WITHOUT USING CALL LIGHT, BED ALARM ALARMING, ALL NURSES IN OTHER ROOMS, PT PULLED CENTRAL LINE HALF OUT, BLOOD LEAKING DOWN GOWN AND ONTO FLOOR. PT LEAKING STOOL, HANDS, CHEST AND GOWN STREAKED WITH STOOL. HOUSEKEEPING NOTIFIED THIS NURSE THAT PT OUT OF BED, NURSE RAN TO PT SIDE, ASSISTED TO TOILET. IV TEAM PAGED TO ASSESS CENTRAL LINE, CLEANSED AND COVERED WITH STERILE 4X4S. PT CLEANED UP AND ASSISTED TO BED. CIWA SCORED 8.
--- NOTE | 2021-04-18 12:59 | NUR ---
RIGHT IJ WAS PULLED BACK BY THE PATIENT, A PIV STARTED AND CENTRAL LINE REMOVED. DISCUSSED REPLACEMENT OF THE LINE WITH THE PATIENT AND SHE CONSENTED TO PLACEMENT. A NEW LEFT CENTRAL LINE WAS PLACED PER HOSPITAL POLICY AFTER A BEDSIDE TIMEOUT WAS COMPLETED. THE 25CM LINE WAS ADVANCED TO 6CM EXTERNAL. A STAT CHEST XRAY CONFIRMED THE LINE IS IN GOOD POSITION. LINE RELEASED FOR USE
[2021-04-18 14:04] LABS: PROTIME 27.9 Seconds (10.5-12.1)
[2021-04-18 14:07] LABS: INR 2.68
--- NOTE | 2021-04-18 15:00 | NUR ---
PT ATTEMPTED TO GET OUT OF BED NUMEROUS TIMES WITHOUT USING CALL LIGHT. CIWA SCORED 13. PT HAVING AUDITORY AND VISUAL DISTURBANCES, THINKS OTHER PEOPLE ARE IN THE ROOM WITH HER. ATIVAN GIVEN, BED ALARM SET.
--- NOTE | 2021-04-18 20:52 | NUR ---
SPOKE TO JANES HERNANDEZ, PROVIDED PASSCODE; GAVE UPDATE. ASKS APPROPRIATE QUESTIONS, ANSWERED TO BEST OF RN ABILITY WITHIN SCOPE OF PRACTICE.
[2021-04-19] VITALS (69 sets, daily range): BP systolic 71–139; BP diastolic 40–81
[2021-04-19 05:21] LABS: MCH 35.2 pg (26.0-34.0)
[2021-04-19 05:23] LABS: MCV 100.6 fL (80.0-100.0); RBC 1.62 mil/uL (4.20-5.00); RDW 17.8 % (10.5-14.5); WBC 8.9 thou/uL (4.0-11.0)
--- NOTE | 2021-04-19 05:36 | NUR ---
REQUIRING ATIVAN Q2-3H FOR ETOH PER PROTOCOL, CIWA 9-15 THROUGHOUT SHIFT. INTERMITTENTLY HALLUCINATING. NOT ORIENTED TO TIME, PLACE.
[2021-04-19 05:37] LABS: HEMATOCRIT 16.3 % (37.0-47.0); HEMOGLOBIN 5.7 gm/dL (12.0-15.0)
[2021-04-19 06:00] LABS: ALBUMIN 1.9 g/dL (3.4-5.0); CALCIUM 6.5 mg/dL (8.5-10.1); CREATININE 2.5 mg/dL (0.6-1.0); MAGNESIUM 1.8 mg/dL (1.8-2.4); TOTAL BILIRUBIN 11.9 mg/dL (0.2-1.0); TOTAL PROTEIN 4.2 g/dL (6.4-8.2)
--- NOTE | 2021-04-19 07:04 | NUR ---
GAVE UPDATES TO GM, DISCUSSED NEED TO TALK WITH FAMILY WITH DR GONZALEZ
--- NOTE | 2021-04-19 07:10 | PATH ---
[facility] [address] [place] [address] PATHOLOGY RPT PROCEDURE Name: PARMINDER BENZ Room #: 239-P ADM IN M.R.#: [id number] Admission: 04/16/21 Date of : 73 Discharge: Report #: [id number] Path Case #: [id number] Note [facility] Accession Number: [id number] TESTS RESULT FLAG UNITS REF RANGE LAB Clinician Provided Cytology Information No. of containers..01 Other (Miscellaneous) Source: ASCITES DIAGNOSIS: 02 ASCITES NEGATIVE FOR MALIGNANT EPITHELIAL CELLS. SCANT CELLULARITY. THIS INTERPRETATION INCLUDES EVALUATION OF A CELL BLOCK. RARE MESOTHELIAL CELLS ALONG WITH A FEW INFLAMMATORY CELLS. Pathologist ICD10: 02 R18.8 Signed out by: 02 Joelle Ellison MD, Pathologist NPI- [id number] Performed by: 01 Shirley Dexter, Ambulance Paramedic ([facility]) Gross description: 01 15ML, BLOODY RED, 1 TP 1 CB /LCS 04/17/2021 1903 Local FLAG LEGEND: L-Low Normal,H-High Normal,LL-Alert Low,HH-Alert High <-Panic Low,>-Panic High,A-Abnormal,AA-Critical Abnormal Performed at: [address] [place] [address] Brent Machado MD, [address] [address] Joelle Ellison MD, Specimen Comment: A courtesy copy of this report has been sent to [phone] Specimen Comment: Report sent to Performed at: [address], [place], [place] [id number] MD Brent Machado MD Phone: [phone]
[2021-04-19 09:25] LABS: APTT 65.5 Seconds (24.5-32.8); INR 2.93; PROTIME 30.3 Seconds (10.5-12.1)
--- NOTE | 2021-04-19 11:00 | NUR ---
PT CIWA 15, ORDERS TO START PRECEDEX GTT, WILL BE GOING TO IR FOR ARTERIOGRAM, BLOOD INFUSING. BP LOW-SEE CHARTING. LEVOPHED STARTED PER IR REQUEST. ATTEMPTED TO CALL S/O LEFT VOICEMAIL. 1415 PT BACK FROM IR, LEVOPHED AND PRECEDEX INFUSING, BP STABLE-SEE CHARTING PT MUCH MORE RELAXED ON PRECEDEX. MINX DRESSING IN PLACE, C/D/I, 2+ DORSALIS PEDIS.
[2021-04-19 12:20] LABS: MCH 34.4 pg (26.0-34.0); MCHC 34.9 g/dL (28.0-37.0); MCV 98.7 fL (80.0-100.0); RBC 1.65 mil/uL (4.20-5.00); RDW 15.6 % (10.5-14.5); WBC 8.6 thou/uL (4.0-11.0)
[2021-04-19 12:27] LABS: HEMATOCRIT 16.3 % (37.0-47.0); HEMOGLOBIN 5.7 gm/dL (12.0-15.0)
--- NOTE | 2021-04-19 13:44 | NUR ---
Discussed during am rounds and los with hospitalist. no anticipated dc over the weekend. Unable to visit with Mone rt resting in bed with eyes closed. Will cont. following as needed for dc needs.
[2021-04-19 14:07] LABS: BODY FLUID ALBUMIN < 0.2 g/dL (Not Estab.); BODY FLUID AMYLASE 7 U/L (()); BODY FLUID GLUCOSE 299 mg/dL (()); BODY FLUID LDH 42 IU/L (()); BODY FLUID PROTEIN 0.4 g/dL (())
[2021-04-19 16:16] LABS: HEMATOCRIT 21.4 % (37.0-47.0); HEMOGLOBIN 7.3 gm/dL (12.0-15.0)
[2021-04-19 16:50] LABS: APTT 35.2 Seconds (24.5-32.8); PROTIME 21.1 Seconds (9.3-11.4)
[2021-04-20] VITALS (95 sets, daily range): BP systolic 76–116; BP diastolic 41–86
[2021-04-20 05:45] LABS: WBC 8.4 thou/uL (4.0-11.0)
[2021-04-20 05:47] LABS: HEMOGLOBIN 6.5 gm/dL (12.0-15.0); MCH 35.3 pg (26.0-34.0); MCHC 35.6 g/dL (28.0-37.0); RBC 1.83 mil/uL (4.20-5.00); RDW 16.2 % (10.5-14.5)
[2021-04-20 05:52] LABS: INR 1.92; PROTIME 20.3 Seconds (10.5-12.1)
[2021-04-20 05:59] LABS: APTT 43.2 Seconds (24.5-32.8)
[2021-04-20 06:11] LABS: ALBUMIN 2.6 g/dL (3.4-5.0); CALCIUM 6.8 mg/dL (8.5-10.1); CREATININE 1.8 mg/dL (0.6-1.0); MAGNESIUM 1.9 mg/dL (1.8-2.4); POTASSIUM 4.2 mmol/L (3.5-5.1); TOTAL BILIRUBIN 15.5 mg/dL (0.2-1.0); TOTAL PROTEIN 4.5 g/dL (6.4-8.2)
[2021-04-20 06:16] LABS: HEMATOCRIT 18.2 % (37.0-47.0)
[2021-04-20 15:27] LABS: HEMOGLOBIN 6.5 gm/dL (12.0-15.0)
[2021-04-20 15:40] LABS: HEMATOCRIT 18.6 % (37.0-47.0); INR 1.78; PROTIME 18.9 Seconds (10.5-12.1)
--- NOTE | 2021-04-20 18:30 | NUR ---
PT REMAINED CONFUSED TO PLACE, TIME AND SITUATION TODAY. PT IMPULSIVE AND FORGETFUL. PRECEDEX CONTINUES FOR PT SAFETY TO PROTECT LINES/TUBES DUE TO INCREASED RISK OF BLEEDING. LEVOPHED FOR B/P SUPPORT, TITRATING PT TOLERATES. PT'S DAUGHTER FROM [place] VISITED TODAY. UPDATED FAMILY ON PT CONDITION AND QUESTIONS ANSWERED. OVERALL, PT NOT PROGRESSING TOWARD GOALS, AND FAMILY IS CONCERNED FOR THE POOR PROGNOSIS.
[2021-04-20 23:25] LABS: HEMATOCRIT 17.4 % (37.0-47.0)
--- NOTE | 2021-04-20 23:53 | NUR ---
AT 2330 THISRN CONTACTD cedrick Gilliam np TO REPORT HGB 6.0. ORDER RECIVED TO GIVE 1 UNIT OF PRBS AND RECHECK HGB ONE HOUR POST TRANSFUSION.
[2021-04-21] VITALS (60 sets, daily range): BP systolic 75–141; BP diastolic 53–84
[2021-04-21 05:56] LABS: MCH 34.9 pg (26.0-34.0); MCHC 35.2 g/dL (28.0-37.0); RBC 1.82 mil/uL (4.20-5.00); RDW 16.6 % (10.5-14.5)
[2021-04-21 06:09] LABS: HEMOGLOBIN 6.3 gm/dL (12.0-15.0)
[2021-04-21 06:28] LABS: CALCIUM 7.3 mg/dL (8.5-10.1); CREATININE 1.5 mg/dL (0.6-1.0); MAGNESIUM 1.9 mg/dL (1.8-2.4); POTASSIUM 3.7 mmol/L (3.5-5.1); TOTAL PROTEIN 4.6 g/dL (6.4-8.2)
[2021-04-21 06:31] LABS: TOTAL BILIRUBIN 16.2 mg/dL (0.2-1.0)
--- NOTE | 2021-04-21 07:55 | NUR ---
Patient not progressing towards D/C goals as she continues to need blood transfusions. Levophed required to maintain SBP>65. Contiunes on Precedex with agitaion, confusion, and impulsive behavior after ETOH detox. Provider Brian Esposito NP aware of bleeding and acisites oozing at paracentesis site, RUQ,& firm distended abdomen. Patient complaint for NPO status after explaination given for why. Demanding to leave so she may smoke. Pateint was implusive attmepintg to get out of bed frequently and pulling at lines. Patient is oriented to self. When attempting to redireted, refused to follow instrutions for her safety.
[2021-04-21 10:15] LABS: FIBRINOGEN 123 mg/dL (201-437)
[2021-04-21 10:16] LABS: D-DIMER > 35.20 ug/mLFEU (0.19-0.50)
--- NOTE | 2021-04-21 10:16 | NUR ---
1000-DR GONZALEZ IN EARLIER. [facility].PT REMAINS VERY RESTLESS,MUMBLES,AT TIMES CALLS OUT. MOSTLY OBTUNDED,DYSPNIC AT REST. SHERI [facility]
[2021-04-22] VITALS (49 sets, daily range): BP systolic 76–113; BP diastolic 37–74
--- NOTE | 2021-04-22 02:31 | NUR ---
Brian Esposito NP rounded and is aware of pt bleed ing from TL IJ site requirined 4 dressing changes this past 24hrs due to saturated gauze dressing. Shila consulted evaluation.
--- NOTE | 2021-04-22 03:12 | NUR ---
THIS RN CALLED AND LEFT A MESSAGE ON PATINE'S BOYFRIEND AND DAUGHTER'S PHONE 04/22/2021, 0310. ASKED FAMILY TO CALL ICU. SERVANDOT'S FMAILY HAD BEEN APPROVED PER NURSING SCHEDULER TO COME VIST PT POST VISITING HOURS. FAMILY IN FOMRED PATIENT STATUS WAS DELINCING. FMAILY DID NOT COME TO VISIT. NE IS HAVING AND INCRESED NEED FOR LEVOPHED TO MAINTAIM BP GOAL AND NO URINE OUT PUT cedrick Gilliam NP IS AWARE. cedrick GILLIAM SUGGESTED FAMILY MAY WANT TO COME BE AT BED SIDE TO WHY MESSAGE WAS LEFT AT 0310.
[2021-04-22 05:26] LABS: CALCIUM 7.8 mg/dL (8.5-10.1); POTASSIUM 4.5 mmol/L (3.5-5.1)
[2021-04-22 05:31] LABS: HEMOGLOBIN 6.5 gm/dL (12.0-15.0); MCH 35.4 pg (26.0-34.0); MCHC 35.1 g/dL (28.0-37.0); RBC 1.82 mil/uL (4.20-5.00); RDW 18.3 % (10.5-14.5); WBC 10.1 thou/uL (4.0-11.0)
[2021-04-22 05:34] LABS: INR 1.82; PROTIME 19.3 Seconds (10.5-12.1)
[2021-04-22 05:35] LABS: HEMATOCRIT 18.4 % (37.0-47.0)
--- NOTE | 2021-04-22 06:18 | NUR ---
04/22/2021 @0500 PATIENT'S BOYFIREND CALL ROLAND RASHID LEFT AT 0310 THIS AM TO CALL ICU. UPDATE GIVEM ABOUT PT STATUS, DECLINE, INCRESED NEED FOR LEVOPHED, INFORMED HIM HEMAONC HAD BEEN CONSLTED TOSEE PT TODAY. HIS RESPONSE WAS THEY ARE CONSIDERING COMFORT CARE. THE PT'S SIGNIFICANT OTHER AND THE PATIENT'S DAUGHTER WOULD BE UP TO SEE PATIENT SOON. tHEY WERE INFORMED SHE WAS FRAGILE AND IT WAS UNSURE HOW MUCH LONGER SHE WOULD MAINTAIN BP AND BREATHING. Alhaji MOORE NP WAS INFORED OF SIGNIFICANT OTHER CONSIDERING CONFORT CARE. HGB 6.5 ANF HCT 18.4, ORDER TO TRANSFUSE ONE UNT OF PRBCs, UNLESS COMFORT CARE IS DECIDED PRIOR TO TRANSFUSION. NOTE PT BREATHING WAS MORE SHALLOW AT 0600.
--- NOTE | 2021-04-22 07:32 | NUR ---
HAD OFF REPORT GIVE ON COMEING RN AWARE ONE UNIT PRBCs I READY IN BLOOD BANK.
--- NOTE | 2021-04-22 09:00 | NUR ---
DAUGHTER AND BOYFRIEND AT BEDSIDE, REQUESTING THAT BLOOD BE STOPPED, AND COMFORT CARE INITIATED. DR LOPEZ NOTIFIED AND ORDERS NOTED. BLOOD STOPPED PER FAMILY REQUEST.
--- NOTE | 2021-04-22 10:00 | NUR ---
DR MASSEY OFFICE NOTIFIED OF CONSULT.
--- NOTE | 2021-04-22 11:00 | NUR ---
Chart review, discussed during los with hospitalist and am rounds. new order Dr aguilar consult. Possible will be going comfort care. significate other and her daughter is at bedside. will cont. following as needed for dc needs
--- NOTE | 2021-04-22 11:21 | NUR ---
DR MASSEY IN TO SPEAK WITH FAMILY AND FORM POC. ATIVAN GIVEN, FENTANYL GIVEN AND HALDOL GIVEN. PATIENT PLACED ON NC. NS AND LEVOPHED DC'D PER ORDER.
--- NOTE | 2021-04-22 14:15 | NUR ---
FENTANL GIVEN FOR AIR HUNGER. FAMILY HERE EARLIER BUT LEFT A FEW MINUTES AGO.
--- NOTE | 2021-04-22 14:35 | NUR ---
HEART RATE DROPPING INTO THE 50'S AND RESP RATE 10-14 BREATHES PER MINUTE. UPDATED PATIENT'S DAUGHTER OF IMPENDING .
--- NOTE | 2021-04-22 14:46 | NUR ---
MONITOR SINUS YURIY WITH BIGEMINAL PVC'S TO V TACH TO VFIB TO ASYSTOLE. PUPILS ARE FIXED AND DILATED, UNABLE TO ASCUSULATE HEART TONE. NO RESP EFFORT NOTED. PATIENT PRONOUCED .
--- NOTE | 2021-04-22 15:05 | HC ---
[facility] [place] [address] CONSULTATION Name: PARMINDER BENZ Room #: 239-P ADM IN M.R.#: [id number] Admission: 04/16/21 Attend Phys: Antonio Isabel MD Discharge: Date of : 73 Report #: [id number] THIS REPORT FOR: cc: [facility] - Clinic physician unknown [facility] - Clinic physician unknown Angelito Coughlin MD ~ DOC #: [id number] cc: MD Angelito Berry MD HISTORY OF PRESENT ILLNESS: The patient is a 45-year-old female with a history of end-stage liver disease due to chronic alcohol abuse, who was seen in the emergency room today with increasing abdominal discomfort and distention. She has a known history of ascites, history of varices were banded several years ago by a different body former. She denies any bleeding at this time. She is on diuretics. She continues to actively drink alcohol. She thinks her last paracentesis was several months ago. She believes she has had a total of four paracentesis in the past, despite being on diuretics. She therefore underwent ultrasound with paracentesis today with removal of 3000 mL, however, this was blood-tinged ascites. Therefore, she had a CT scan of the abdomen and pelvis immediately following her paracentesis, which did show consistent with a small focus of active hemorrhage involving the posterior inferior aspect of the right lobe of the liver. GI was consulted for her bleed as well as her chronic liver disease. She denies any recent fevers or chills. She denies any melanotic stools or bright red blood per rectum. No hematemesis recently. Since the paracentesis, she denies any significant abdominal pain. Her admit hemoglobin was 11.1. Her repeat hemoglobin this morning was 10.2. She does report lower extremity edema at times, but none recently. She does complain of a nonhealing lesion on her left great toe. On admission, she had a blood alcohol level of 296. PAST MEDICAL HISTORY: End-stage liver disease secondary to alcohol abuse, previous history of pancreatitis, previous esophageal varices per the patient with banding several years ago. Previous cholecystectomy, ACL tear. History of cellulitis, previous history of subdural hematoma. Diabetes also. MEDICATIONS: On admission, Lantus, Protonix, cholestyramine, K-Dur, Keppra, Lasix 40 mg p.o. b.i.d., spironolactone 100 mg b.i.d., magnesium oxide, folic acid, thiamine, lactulose and vitamin. ALLERGIES: No known drug allergies. REVIEW OF SYSTEMS: As per HPI. SOCIAL HISTORY: She does actively smoke cigarettes, again uses alcohol on a [facility] [address] [place] [address] CONSULTATION Name: PARMINDER BENZ Room #: 239-P [facility] IN M.R.#: [id number] Admission: 04/16/21 Attend Phys: Antonio Isabel MD Discharge: Date of : 73 Report #: [id number] daily basis. FAMILY HISTORY: Negative for colon cancer. PHYSICAL EXAMINATION: VITAL SIGNS: Temperature is 36.7, pulse 107, blood pressure 146/97, respiratory rate is 16. GENERAL: She is alert and oriented x3 in no acute distress. HEENT: Her sclerae are icteric. Oropharynx is clear. NECK: Supple, without lymphadenopathy. CARDIOVASCULAR: Regular rate. CHEST: Clear to auscultation bilaterally. Her skin is jaundiced. She does have spider angiomata in her upper chest throughout. ABDOMEN: Soft. She is nontender, nondistended at this time. EXTREMITIES: No cyanosis, clubbing or edema. There is a small skin lesion on her left great toe, no acute inflammation, appears to be chronic. LABORATORY DATA: WBC is 6.8, hemoglobin repeat 10.2, platelet count is 79,000. INR on admission 1.49. Sodium 129, potassium 3.8, chloride 94, bicarbonate 26, BUN 8, creatinine 0.8, glucose 281. Lactic acid level 1.6, calcium 7.6, magnesium 1.6, total bilirubin is 10.5, direct bilirubin 3.6, AST 155, ALT is 54, alkaline phosphatase 224, total protein 6.1, albumin 1.6, vitamin B12 is 2926, lipase 52. ASSESSMENT AND PLAN: 1. End-stage liver disease secondary to alcohol abuse. The patient with recurrent ascites despite being on diuretics. She underwent a paracentesis today. Unfortunately appears to have a bleed from the paracentesis into her peritoneal cavity as documented by CT. I advised after getting a consult to have surgery involved. Dr. Pace has evaluated the patient. The plan is to observe closely at this point. She is not having any discomfort. We will repeat hemoglobin this afternoon and continue to monitor closely. May need to consider IR intervention if bleeding or surgery. 2. Long history of alcohol abuse. Obviously, we would recommend the patient discontinue alcohol, but she has not done this for many years. Need to observe for possibility of withdrawal. 3. Ascites. Continue diuretics. Again, status post paracentesis today. 4. Toe skin lesion. Plan is to have wound care evaluate. Thank you for allowing me to participate in her care. Angelito Coughlin MD [facility] [address] [place] [address] CONSULTATION Name: PARMINDER BENZ Room #: 239-P ADM IN M.R.#: [id number] Admission: 04/16/21 Attend Phys: Antonio Isabel MD Discharge: Date of : 73 Report #: [id number] <ELECTRONICALLY SIGNED> By: Angelito Coughlin MD 04/22/21 1505 1502 2229 Angelito Coughlin MD /nt
--- NOTE | 2021-04-22 15:05 | NUR ---
DAUGHTER, JAYMIE AND S/O DAVID AT BEDSIDE AT 1450. INFORMED OF MOTHER'S . GIVEN BELONGING WITH CELL PHONE AND CALL CENTER RECEPTIONIST. INFORMED THAT WE WILL NEED A HOME. STATED THAT THEY WILL CALL BACK WHEN THEY TALK TO FAMILY OUT OF STATE
--- NOTE | 2021-04-23 08:28 | HC ---
[facility] [place] [address] CONSULTATION Name: PARMINDER BENZ Room #: 239-[facility] IN M.R.#: [id number] Admission: 04/16/21 Attend Phys: Antonio Isabel MD Discharge: 04/22/21 Date of : 73 Report #: [id number] THIS REPORT FOR: cc: [facility] - Clinic physician unknown [facility] - Clinic physician unknown Stanton Lynn MD ~ DOC #: [id number] Stanton Lynn MD DATE OF SERVICE: 04/18/2021 WOUND CARE CONSULTATION PERSONAL PHYSICIAN: Not on staff. CHIEF COMPLAINT: Left great toe ulceration. 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 The patient had a paracentesis, which was complicated by liver injury and hemorrhage. The patient is currently in the ICU. We have been asked to care for the right great toe, chronic ulcer. PAST MEDICAL HISTORY: Pancreatitis, stage IV liver disease, alcohol abuse, previous subdural hematoma, diabetes mellitus. CURRENT MEDICATIONS: Multiple, I reviewed the patient's medication list. DRUG ALLERGIES: None. SOCIAL HISTORY: The patient has a history of alcohol abuse. FAMILY HISTORY: Not pertinent to current medical condition. REVIEW OF SYSTEMS: CONSTITUTIONAL: The patient denies fevers or chills. NEUROLOGIC: The patient denies any numbness, tingling in arms, legs, but does complain of generalized weakness. Eyes: No complaints. ENT: No complaints. CARDIOVASCULAR: The patient has chronic lower extremity edema. The patient denies chest pain or palpitations. RESPIRATORY: The patient denies shortness of breath, cough or wheezes. GASTROINTESTINAL: The patient complains of mild generalized abdominal pain with associated nausea, but no vomiting. GENITOURINARY: The patient denies urgency or frequency. MUSCULOSKELETAL: No complaints. [facility] [address] [address] CONSULTATION Name: PARMINDER BENZ Room #: 239-P [facility] IN ..#: [id number] Admission: 04/16/21 Attend Phys: Antonio Isabel MD Discharge: 04/22/21 Date of : 73 Report #: [id number] SKIN: The patient has a chronic ulcer on the left great toe. PHYSICAL EXAMINATION: VITAL SIGNS: Stable. The patient is afebrile. GENERAL: This is a chronically ill-appearing white female who is in no obvious distress. HEENT: Normocephalic, atraumatic. Mucous membranes somewhat dry. Pupils are round. Sclerae white. NECK: Without JVD. LUNGS: Clear. HEART: Regular. ABDOMEN: Obese, soft, nontender. EXTREMITIES: The patient moves all extremities without difficulty. There is trace to 1+ edema bilateral lower extremities. Bilateral heels are intact. Evaluation of the left great toe reveals a chronic ulcer on the plantar aspect of the great toe without signs of infection. It is clean and granulating. No other associated ulcerations are noted. NEUROLOGIC: Cranial nerves II-XII grossly intact. Motor and sensory are grossly intact. LABORATORY VALUES: White count 14.9, hemoglobin 6.4, BUN 24, creatinine 2.7. Glucose is 253, albumin 1.3. IMPRESSION: 1. Chronic ulceration, plantar aspect of left great toe without signs of infection. 2. ____ shock secondary to acute blood loss anemia from iatrogenic liver injury secondary to paracentesis. 3. Hepatic encephalopathy. 4. End-stage liver disease with alcoholic hepatitis. 5. Severe protein calorie malnutrition with an albumin of 1.3. 6. Generalized debility. PLAN: At this time, we will start Betadine twice daily to the toes, leave open to air. The patient was put on ____ every 2 hours given the fact the patient has decreased mobility. We will try to attempt to maximize the patient's oral protein supplementation for healing. We utilized physical and occupational therapy for strengthening. We will continue all other current medications. We will continue to follow the patient. MD NIKOLAI Felton/AMBROCIO/[place] [address] CONSULTATION Name: PARMINDER BENZ Room #: 239-[facility] IN M.R.#: [id number] Admission: 04/16/21 Attend Phys: Antonio Isabel MD Discharge: 04/22/21 Date of : 73 Report #: [id number] <ELECTRONICALLY SIGNED> By: Stanton Lynn MD 04/23/21 0828 [id number] 06 Stanton Lynn MD /nt
--- NOTE | 2021-04-29 07:48 | HC ---
[facility] [place] [address] CONSULTATION Name: PARMINDER BENZ Room #: 239-[facility] IN M.R.#: [id number] Admission: 04/16/21 Attend Phys: Antonio Isabel MD Discharge: 04/22/21 Date of : 73 Report #: [id number] THIS REPORT FOR: cc: [facility] - Clinic physician unknown [facility] - Clinic physician unknown Abdias Muller MD ~ DOC #: [id number] cc: Antonio Isabel MD, Nik Pace MD, Idalia Bower MD, Bear Stubbs MD, Angelito Coughlin MD, Johny Pennington DO, Stanton Lynn MD, MD Abdias Owens MD DATE OF SERVICE: 04/22/2021 REQUESTING PHYSICIAN: Dr. Antonio Isabel REASON FOR CONSULTATION: Coagulopathy secondary to alcoholic liver disease. HISTORY OF PRESENT ILLNESS: The patient is a 45-year-old female who was admitted for liver injury after paracentesis and also alcohol intoxication. Unfortunately on her hospitalization, she has continued having bleeding. She is now quite encephalopathic and is in the ICU on nonrebreather mask. After talking with the family and reviewing the notes, the patient has been a DNR at ____ before. When I talk with her daughter Trinity who is in the car driving up here with the patient's significant other/boyfriend. I explained to them the patient is doing poorly, is decompensating overnight with less awareness of her surroundings and continued bleeding and doing overall very poorly. She is on increasing doses of pressors. I agree with making a DNR at this time and on further discussion, they also agree to avoid additional transfusions and moving towards comfort measures. I have talked to the nurse and we will make this direction. PAST MEDICAL HISTORY: Notable for alcoholic liver disease with continued alcohol usage. She has had multiple attempts of trying to stop alcohol drinking. Also, has had several paracenteses, I think now 4; has a history of esophageal varices, diabetes, left great toe wound, protein-calorie malnutrition, history of tobacco use, history of subdural hematoma, also noncompliance. SOCIAL HISTORY: Alcohol and tobacco use as above. WORK HISTORY: Not known. FAMILY HISTORY: Noncontributory. PHYSICAL EXAMINATION: [facility] [address] [place] [address] CONSULTATION Name: PARMINDER BENZ Room #: 239-P [facility] IN .R.#: [id number] Admission: 04/16/21 Attend Phys: Antonio Isabel MD Discharge: 04/22/21 Date of : 73 Report #: [id number] GENERAL: The patient appears older than her stated age, is in the ICU in a medical bed on a nonrebreather with jaundice type skin color, not responding to touch or to voice. VITAL SIGNS: Her recent height is 5 feet 10 inches, 177.8 cm; weight 232 pounds or 105.23 kilograms. Blood pressure is 84/57 with use of Levophed, O2 sat 94% on nonrebreather, respirations 29, pulse 102. Most recent temperature about midnight was 97.5 axillary. HEENT: Face is relaxed. Breathing is somewhat short and shallow. NECK: No enlarged lymph nodes in the supraclavicular, cervical, axillary region. The patient does have a left central line in her neck. ABDOMEN: Slightly obese. Not tympanitic. No definite masses. EXTREMITIES: Without clubbing, cyanosis. LABORATORY DATA: Review notable for hemoglobin of 6.5, white count of 10.1, platelets of 62. INR this morning 1.82. AST is 283, total bilirubin 16.2, ALT 96, LDH 516. CAT scans earlier showed nodular liver. MEDICATIONS: At this time currently include epinephrine drip, dexmedetomidine drip, insulin on a sliding scale, Haldol p.r.n., Alteplase as needed, human albumin q.8 hours scheduled, nicotine patch daily, vitamins daily, thiamine daily, famotidine 20 b.i.d., Benadryl p.r.n., hydromorphone p.r.n., flumazenil p.r.n., lorazepam p.r.n. ASSESSMENT AND PLAN: 1. General health status. After talking with the patient's daughter and the patient's significant other/boyfriend on the phone about her current status that is declining and the history that in the past she had been a DNR in another hospice, which they are aware of, they agreed to make her DNR here in the hospital. We also talked about the fact that she is doing more poorly. We were not sure there is any benefit to do an additional transfusions and they are in agreement with our suggestion for no more transfusions and focus on comfort measures. They are also aware that she may not survive more than several more hours or throughout the next day or two. They asked several questions regarding this. 2. Alcoholic liver disease. Supportive measures would probably ____ the patient has been unable to stop alcohol intake multiple times in the past per records. 3. Hepatic encephalopathy with elevated bilirubin. We will focus on comfort measures. 4. History of diabetes. Sliding scale insulin per others. 5. Respiratory failure on 100% nonrebreather, but we will plan not to intubate. 6. Hypertension. Continue fluids, but will not intubate or do CPR. We will follow with you. Abdias Muller MD [facility] [address] [place] [address] CONSULTATION Name: PARMINDER BENZ Room #: 239-P [facility] IN M.R.#: [id number] Admission: 04/16/21 Attend Phys: Antonio Isabel MD Discharge: 04/22/21 Date of : 73 Report #: [id number] RJM/ALL/ANI <ELECTRONICALLY SIGNED> By: Abdias Muller MD 04/29/2148 9 5 Abdias Muller MD /nt
== END 2021-04-22 14:46 | DRG 853 ==
LOC: ER 07:07 → 3W 11:14 → ICU 11:14 → EROBS 11:14 → 3W 11:27 → ICU 04-17 12:02
PROVIDERS: Emergency Medicine; Hospitalist; Internal Medicine; Internal Medicine Gastroenterology; Nurse Practitioner; Nurse Practitioner Family; Radiology Diagnostic Radiology; Surgery; ADMIT Internal Medicine; ATTEND Internal Medicine
PROC: 0W9G3ZZ Drainage of Peritoneal Cavity, Percutaneous Approach (ICD-10-PCS; 2021-04-16)
PROC: 02HV33Z Insertion of Infusion Device into Superior Vena Cava, Percutaneous Approach (ICD-10-PCS; 2021-04-17)
PROC: B5181ZA Fluoroscopy of Superior Vena Cava using Low Osmolar Contrast, Guidance (ICD-10-PCS; 2021-04-17)
PROC: B548ZZA Ultrasonography of Superior Vena Cava, Guidance (ICD-10-PCS; 2021-04-17)
PROC: 30233M1 Transfusion of Nonautologous Plasma Cryoprecipitate into Peripheral Vein, Percutaneous Approach (ICD-10-PCS; 2021-04-17)
PROC: 04L33DZ Occlusion of Hepatic Artery with Intraluminal Device, Percutaneous Approach (ICD-10-PCS; 2021-04-17)
PROC: 30233N1 Transfusion of Nonautologous Red Blood Cells into Peripheral Vein, Percutaneous Approach (ICD-10-PCS; 2021-04-17)
PROC: B4151ZZ Fluoroscopy of Inferior Mesenteric Artery using Low Osmolar Contrast (ICD-10-PCS; 2021-04-17)
PROC: B4101ZZ Fluoroscopy of Abdominal Aorta using Low Osmolar Contrast (ICD-10-PCS; 2021-04-17)
PROC: B4141ZZ Fluoroscopy of Superior Mesenteric Artery using Low Osmolar Contrast (ICD-10-PCS; 2021-04-17)
PROC: 30233R1 Transfusion of Nonautologous Platelets into Peripheral Vein, Percutaneous Approach (ICD-10-PCS; 2021-04-19)
PROC: B4121ZZ Fluoroscopy of Hepatic Artery using Low Osmolar Contrast (ICD-10-PCS; 2021-04-19)
PROC: 5A0935A Assistance with Respiratory Ventilation, Less than 24 Consecutive Hours, High Flow/Velocity Cannula (ICD-10-PCS; principal; 2021-04-22)
DX: A41.9 Sepsis, unspecified organism (principal); E43 Unspecified severe protein-calorie malnutrition; J96.01 Acute respiratory failure with hypoxia; D65 Disseminated intravascular coagulation [defibrination syndrome]; G92 Toxic encephalopathy; R65.21 Severe sepsis with septic shock; N17.0 Acute kidney failure with tubular necrosis; E87.1 Hypo-osmolality and hyponatremia; K91.72 Accidental puncture and laceration of a digestive system organ or structure during other procedure; D62 Acute posthemorrhagic anemia; S36.119A Unspecified injury of liver, initial encounter; K86.1 Other chronic pancreatitis; K70.31 Alcoholic cirrhosis of liver with ascites; K72.90 Hepatic failure, unspecified without coma; Y83.8 Other surgical procedures as the cause of abnormal reaction of the patient, or of later complication, without mention of misadventure at the time of the procedure; F10.129 Alcohol abuse with intoxication, unspecified; Y73.8 Miscellaneous gastroenterology and urology devices associated with adverse incidents, not elsewhere classified; R57.1 Hypovolemic shock; F17.210 Nicotine dependence, cigarettes, uncomplicated; E11.9 Type 2 diabetes mellitus without complications; E83.42 Hypomagnesemia; X58.XXXA Exposure to other specified factors, initial encounter; Z66 Do not resuscitate; E11.621 Type 2 diabetes mellitus with foot ulcer; L97.529 Non-pressure chronic ulcer of other part of left foot with unspecified severity; Z51.5 Encounter for palliative care; Z79.4 Long term (current) use of insulin; Z90.49 Acquired absence of other specified parts of digestive tract; Z79.899 Other long term (current) drug therapy; Y93.89 Activity, other specified; Y92.89 Other specified places as the place of occurrence of the external cause; Y99.8 Other external cause status; Z68.33 Body mass index [BMI] 33.0-33.9, adult
CPT/HCPCS: 10078; 10879; 85076